=== PATIENT | female | born 1950 | race Caucasian/White ===

== ENCOUNTER → 2016-09-18 | Outpatient (CLI) | payer BC, OTHER | LOC: MC.RAD 07:39 | DX: Z12.31 Encounter for screening mammogram for malignant neoplasm of breast (principal); N63 Unspecified lump in breast; N60.02 Solitary cyst of left breast ==

== ENCOUNTER → 2017-09-17 | Outpatient (CLI) | payer BC, MEDICARE, OTHER | LOC: MC.RAD 08:00 | DX: Z12.31 Encounter for screening mammogram for malignant neoplasm of breast (principal) ==

== ENCOUNTER → 2018-09-20 | Outpatient (CLI) | payer BC, MEDICARE, OTHER | LOC: MC.RAD 13:55 | DX: Z12.31 Encounter for screening mammogram for malignant neoplasm of breast (principal); N63.42 Unspecified lump in left breast, subareolar; R92.1 Mammographic calcification found on diagnostic imaging of breast ==

== ENCOUNTER → 2018-09-24 | Outpatient (CLI) | payer BC, MEDICARE, OTHER | LOC: MC.RAD 07:50 | DX: R92.0 Mammographic microcalcification found on diagnostic imaging of breast (principal) ==

== ENCOUNTER → 2018-09-29 | Outpatient (CLI) | payer BC, MEDICARE, OTHER | LOC: MC.RAD 08:22 | DX: R92.1 Mammographic calcification found on diagnostic imaging of breast (principal); Z98.82 Breast implant status ==

== ENCOUNTER → 2019-10-18 | Outpatient (CLI) | payer BC, MEDICARE, OTHER | LOC: MC.RAD 18:22 | DX: Z12.31 Encounter for screening mammogram for malignant neoplasm of breast (principal) ==

== ENCOUNTER → 2019-12-07 | Outpatient (CLI) | payer MEDICARE, OTHER | LOC: COL.RAD 08:00 | DX: Z01.812 Encounter for preprocedural laboratory examination (principal); K76.9 Liver disease, unspecified; R61 Generalized hyperhidrosis; Z90.5 Acquired absence of kidney | CPT/HCPCS: Q9967 ==

== ENCOUNTER → 2020-10-19 | Outpatient (CLI) | payer MEDICARE, OTHER | LOC: MC.RAD 08:30 | DX: Z12.31 Encounter for screening mammogram for malignant neoplasm of breast (principal); Z98.82 Breast implant status ==

== ENCOUNTER 2021-10-09 16:58 | Observation (INO) | payer MEDICARE, OTHER ==
[~2021-10-09] VITALS: Ht 170.2 cm; Wt 69.8 kg
[2021-10-09] VITALS (182 sets, daily range): BP systolic 140–173; BP diastolic 72–77; PULSE 52–58; TEMP 98.5; O2SAT 95–100
[2021-10-09 17:43] LABS: BASO % 0.3 % (0.0-2.0); EOS # 0.1 K/mm3 (0.0-0.7); EOS % 1.9 % (0.0-4.0); GRAN # 4.3 K/mm3 (1.4-6.5); GRAN % 63.1 % (42.2-75.2); HEMATOCRIT 43.5 % (37.0-47.0); HEMOGLOBIN 14.3 g/dl (12.5-16.0); LYMPH # 1.7 K/mm3 (1.2-3.4); LYMPH % 25.5 % (20.0-51.0); MEAN CELL VOLUME 84 fl (80.0-100.0); MEAN CORPUSCULAR HEMOGLOBIN 28 pg (27-31); MEAN CORPUSCULAR HGB CONC 33 g/dl (33.0-37.0); MEAN PLATELET VOLUME 12.7 fl (7.4-10.4); MONO # 0.6 K/mm3 (0.1-0.6); MONO % 8.9 % (1.7-9.3); PLATELET COUNT 241 K/mm3 (130-400); RED BLOOD COUNT 5.19 M/mm3 (4.10-5.30); REDCELL DISTRIBUTION WIDTH-CV 16.5 % (11.5-14.5)
[2021-10-09 17:46] LABS: PROTHROMBIN TIME 11.5 SECONDS (9.7-12.8)
[2021-10-09 17:48] LABS: PARTIAL THROMBOPLASTIN TIME 31.5 SECONDS (26.0-37.0)
[2021-10-09 17:53] LABS: ALANINE AMINOTRANSFERASE 10 U/L (0-55); ALBUMIN 3.9 gm/dL (3.4-4.8); ALKALINE PHOSPHATASE 48 U/L (40-150); ANION GAP 8 mmol/L (7-16); AST,SGOT 15 U/L (5-34); BILIRUBIN,TOTAL 0.6 mg/dL (0.2-1.2); BLOOD UREA NITROGEN 17 mg/dL (10-20); CARBON DIOXIDE 25 mmol/L (23-31); CHLORIDE 107 mmol/L (98-107); GLUCOSE 95 mg/dL (70-99); POTASSIUM 4.4 mmol/L (3.5-4.5); SODIUM 140 mmol/L (136-145); TOTAL PROTEIN 7.3 gm/dL (6.2-8.1)
[2021-10-09 18:05] LABS: TROPONIN-I < 0.010 ng/mL (0.00-0.033)
[2021-10-09] MEDS ORDERED: LEXAPRO 10MG10 MG PO (18:21)
[2021-10-09] MEDS ORDERED: ZYRTEC 10MG10 MG PO (18:22)
[2021-10-09] MEDS ORDERED: VITAMIN D31000 I1 PO (19:36)
[2021-10-09] MEDS ORDERED: COLACE 100100 MG/CAP PO (19:36)
--- NOTE | 2021-10-09 21:15 | NUR ---
PT ARRIVED FROM ER VIA STRETCHER APPROXIMATELY 2044. WALKED FROM STRETCHER INTO ICU ROOM. CONNECTED TO MONITOR, VS TAKEN. PT HTN WITH SBP>170, HYDRALAZINE GIVEN PER PRN ORDER. PT'S STAYED AT BEDSIDE UNTIL THIS TIME, TOOK HOME PT'S JEWELRY. CELL PHONE LEFT AT BEDSIDE. DISCUSSED POC WITH BOTH PT AND SPOUSE. ON INSULATOR APPRENTICE, HR 58-60, IRREGULAR WITH PVC'S. HOWEVER, PALPATED RADIAL PULSES 38. ALL EXTREMETIES WITH GOOD PERFUSION, WARM AND PINK. PT DENIES ANY PAIN, DIZZINESS, OR SOA. REPORTS HEAD JUST FEELING "A LITTLE OFF" AT TIMES. DISCUSSED CONTINUED MONITORING, LAB DRAWS, AND NPO AFTER MIDNIGHT UNTIL CARDIOLOGY ASSESSES PT IN AM. CURRENTLY EATING TURKEY SANDWICH BOX. NO CURRENT QUESTIONS OR COMPLAINTS. WILL CONTINUE TO MONITOR.
[2021-10-10] VITALS (825 sets, daily range): BP systolic 108–174; BP diastolic 54–111; PULSE 47–92; TEMP 97.7–98.7; O2SAT 95–100
[2021-10-10 06:12] LABS: BASO % 0.4 % (0.0-2.0); EOS # 0.2 K/mm3 (0.0-0.7); EOS % 2.8 % (0.0-4.0); GRAN # 3.1 K/mm3 (1.4-6.5); GRAN % 57.5 % (42.2-75.2); HEMATOCRIT 43.9 % (37.0-47.0); HEMOGLOBIN 14.2 g/dl (12.5-16.0); LYMPH # 1.6 K/mm3 (1.2-3.4); LYMPH % 30.3 % (20.0-51.0); MEAN CELL VOLUME 87 fl (80.0-100.0); MEAN CORPUSCULAR HEMOGLOBIN 28 pg (27-31); MEAN CORPUSCULAR HGB CONC 32 g/dl (33.0-37.0); MEAN PLATELET VOLUME 12.6 fl (7.4-10.4); MONO # 0.5 K/mm3 (0.1-0.6); MONO % 8.8 % (1.7-9.3); PLATELET COUNT 202 K/mm3 (130-400); RED BLOOD COUNT 5.05 M/mm3 (4.10-5.30); REDCELL DISTRIBUTION WIDTH-CV 16.7 % (11.5-14.5)
[2021-10-10 06:31] LABS: CALCIUM 8.8 mg/dL (8.4-10.2); CREATININE, serum 0.8 mg/dL (0.57-1.11); POTASSIUM 4.2 mmol/L (3.5-4.5)
--- NOTE | 2021-10-10 09:00 | NUR ---
Alert and oriented; patient watching TV with at bedside. Denies any shortness of breath, dizziness or chest pain. Call light left within reach.
--- NOTE | 2021-10-10 11:00 | NUR ---
Chief Meteorologist met with patient and patient's , Castro (ph#[phone]) to discuss discharge planning. Patient lives in [place] with her and sees Dr. Sultana for primary care. Patient obtains medications from [facility] with no difficulties and does not use any DME. Patient is independent with ADLS and plans to return home at time of discharge. Patient states she thinks she has Advance Directives but is not sure. Discharge Plan: Home
--- NOTE | 2021-10-10 12:06 | NUR ---
Patient transported off unit for a stress test. Alert and oriented and in no distress upon transfer. VS stable.
--- NOTE | 2021-10-10 13:38 | NUR ---
Returned from stress test. Reporting some nausea with episode of emesis noted at bedside. PRN zofran administered. VS stable will continue to monitor.
[2021-10-11] VITALS: BP 118/60; PULSE 55; TEMP 98.5
[2021-10-11 04:00] VITALS: BP 106/42; PULSE 52; TEMP 97.5
[2021-10-11 06:37] LABS: CALCIUM 9.1 mg/dL (8.4-10.2); CREATININE, serum 0.94 mg/dL (0.57-1.11); MAGNESIUM 2.1 mg/dL (1.6-2.6); POTASSIUM 4.4 mmol/L (3.5-4.5)
[2021-10-11 08:00] VITALS: BP 105/47; PULSE 69; TEMP 99.3
[2021-10-11] MEDS ORDERED: ASPIRIN E.C. 8181 MG PO (08:58)
[2021-10-11] MEDS ORDERED: TOPROL XL 25MG25 MG PO (08:58)
--- NOTE | 2021-10-11 09:24 | NUR ---
Initial visit; Lulu doing better today and is going to be discharged with a heart monitor. Accelerator Systems Director will hopefully get to see her at religion and wished her a healthy, happy weekend and God's blessings.
== END 2021-10-11 10:35 | disposition home or self-care (01) ==
LOC: COL.ER 16:58 → ICU 19:08
PROVIDERS: Emergency Medicine; Nurse Practitioner Family; ADMIT Internal Medicine
DX: R00.1 Bradycardia, unspecified (principal); R07.89 Other chest pain; R03.0 Elevated blood-pressure reading, without diagnosis of hypertension; F32.A Depression, unspecified; Z79.899 Other long term (current) drug therapy; Z77.22 Contact with and (suspected) exposure to environmental tobacco smoke (acute) (chronic)
CPT/HCPCS: A9500; G0378; J0360; J1650; J2405; J2785

== ENCOUNTER → 2021-11-15 | Outpatient (CLI) | payer MEDICARE ==
[~2021-11-15] MED LIST: ASPIRIN E.C. 8181 MG PO; COLACE 100100 MG/CAP PO; LEXAPRO 10MG10 MG PO; TOPROL XL 25MG25 MG PO; VITAMIN D31000 I1 PO; ZYRTEC 10MG10 MG PO
== END ==
LOC: MC.RAD 10-22 10:15
DX: Z12.31 Encounter for screening mammogram for malignant neoplasm of breast (principal)

== ENCOUNTER 2023-12-17 16:51 | Emergency (ER) | payer MEDICARE, OTHER ==
[~2023-12-17] VITALS: Ht 170.2 cm; Wt 72.7 kg
[~2023-12-17 16:51] MED LIST changes: +CARDIZEM LA120 MG PO; +LIALDA 1.2 GM1.2 GM PO; +PACERONE200 MG PO; +ROWASA ENEMA60 ML RC; +TAMBOCOR50 MG PO
[2023-12-17 16:55] VITALS: BP 145/81; TEMP 98.8
[2023-12-17] MEDS ORDERED: CEPHALEXIN500 M1 PO (18:00)
[2023-12-17 18:28] VITALS: PULSE 53
== END 2023-12-17 18:29 | disposition home or self-care (01) ==
LOC: COL.ER 16:51
DX: S91.114A Laceration without foreign body of right lesser toe(s) without damage to nail, initial encounter (principal); I48.91 Unspecified atrial fibrillation; Z23 Encounter for immunization; W20.8XXA Other cause of strike by thrown, projected or falling object, initial encounter

== ENCOUNTER 2024-02-05 13:22 | Emergency (ER) | payer MEDICARE, OTHER ==
[~2024-02-05] VITALS: Ht 170.2 cm; Wt 73.2 kg
[~2024-02-05 13:22] MED LIST changes: +CEPHALEXIN500 M1 PO
[2024-02-05 14:18] LABS: BASO % 0.3 % (0.0-2.0); EOS # 0.3 K/mm3 (0.0-0.7); EOS % 4.9 % (0.0-4.0); GRAN # 4.3 K/mm3 (1.4-6.5); GRAN % 72.5 % (42.2-75.2); LYMPH # 0.8 K/mm3 (1.2-3.4); LYMPH % 13.9 % (20.0-51.0); MEAN CELL VOLUME 95 fl (80.0-100.0); MEAN CORPUSCULAR HGB CONC 30 g/dl (33.0-37.0); MONO # 0.5 K/mm3 (0.1-0.6); MONO % 8.1 % (1.7-9.3); PLATELET COUNT 221 K/mm3 (130-400); RED BLOOD COUNT 3.43 M/mm3 (4.10-5.30); REDCELL DISTRIBUTION WIDTH-CV 15.5 % (11.5-14.5)
[2024-02-05 14:20] LABS: HEMATOCRIT 32.7 % (37.0-47.0); HEMOGLOBIN 9.8 g/dl (12.5-16.0); MEAN CORPUSCULAR HEMOGLOBIN 29 pg (27-31)
[2024-02-05 14:36] LABS: ALBUMIN 3.6 g/dL (3.4-4.8); BILIRUBIN,TOTAL 0.6 mg/dL (0.2-1.2); CALCIUM 9.9 mg/dL (8.4-10.2); CREATININE, serum 1.01 mg/dL (0.57-1.11); POTASSIUM 3.7 mEq/L (3.5-4.5); TOTAL PROTEIN 7.4 g/dl (6.2-8.1)
[2024-02-05 14:44] LABS: TROPONIN-I 0.112 ng/mL (0.00-0.033)
[2024-02-05 14:53] LABS: URINE APPEARANCE CLEAR (CLEAR/HAZY); URINE BLOOD NEGATIVE (NEGATIVE); URINE COLOR YELLOW (YELLOW); URINE GLUCOSE NEGATIVE (NEGATIVE); URINE KETONE NEGATIVE (NEGATIVE); URINE NITRATE NEGATIVE (NEGATIVE); URINE PROTEIN(semi-quant) NEGATIVE (NEGATIVE); URINE UROBILINOGEN 0.2 E.U/dL (0.2-1.0)
[2024-02-05 15:25] LABS: THYROID STIMULATING HORMONE 1.973 uIU/mL (0.350-4.940)
[2024-02-05 16:13] VITALS: BP 126/71; PULSE 84; TEMP 98.2
[2024-02-05 19:45] LABS: COLLECTION METHOD CLEAN CATCH
[2024-02-06] MEDS ORDERED: LOPRESSOR 225 MG/TAB PO (14:54)
== END 2024-02-05 16:21 | disposition home or self-care (01) ==
LOC: COL.ER 13:22
PROVIDERS: Family Medicine
DX: D32.9 Benign neoplasm of meninges, unspecified (principal)

== ENCOUNTER 2024-02-06 10:04 | Emergency (ER) | payer MEDICARE, OTHER ==
[~2024-02-06] VITALS: Ht 170.2 cm; Wt 73.2 kg
[2024-02-06 10:13] VITALS: TEMP 98.7
[2024-02-06] MEDS ORDERED: Adenosine 6 MG/2 ML VIAL IV ONE ×2 (10:26→10:27)
[2024-02-06] MEDS ORDERED: NS 1,000 ML IV ONE (10:30)
[2024-02-06] MEDS ORDERED: fentaNYL 50 MCG/ML 2 ML VIAL IV ONE (10:36)
[2024-02-06 11:27] LABS: BASO % 0.3 % (0.0-2.0); EOS # 0.2 K/mm3 (0.0-0.7); EOS % 3.8 % (0.0-4.0); GRAN # 4.6 K/mm3 (1.4-6.5); GRAN % 75.7 % (42.2-75.2); HEMATOCRIT 27.9 % (37.0-47.0); HEMOGLOBIN 8.7 g/dl (12.5-16.0); LYMPH # 0.7 K/mm3 (1.2-3.4); LYMPH % 11.5 % (20.0-51.0); MEAN CELL VOLUME 93 fl (80.0-100.0); MEAN CORPUSCULAR HEMOGLOBIN 29 pg (27-31); MEAN CORPUSCULAR HGB CONC 31 g/dl (33.0-37.0); MEAN PLATELET VOLUME 11.7 fl (7.4-10.4); MONO # 0.5 K/mm3 (0.1-0.6); MONO % 8.4 % (1.7-9.3); PLATELET COUNT 192 K/mm3 (130-400); RED BLOOD COUNT 2.99 M/mm3 (4.10-5.30); REDCELL DISTRIBUTION WIDTH-CV 15.2 % (11.5-14.5)
[2024-02-06 11:41] LABS: ALBUMIN 2.9 g/dL (3.4-4.8); BILIRUBIN,TOTAL 0.5 mg/dL (0.2-1.2); CALCIUM 8.7 mg/dL (8.4-10.2); CREATININE, serum 0.91 mg/dL (0.57-1.11); TOTAL PROTEIN 6.2 g/dl (6.2-8.1)
[2024-02-06 11:50] LABS: TROPONIN-I 0.096 ng/mL (0.00-0.033)
[2024-02-06 12:14] LABS: COLLECTION METHOD CLEAN CATCH
[2024-02-06 12:17] LABS: PH 5.5 (5.0-8.5); URINE APPEARANCE CLEAR (CLEAR/HAZY); URINE BLOOD NEGATIVE (NEGATIVE); URINE COLOR YELLOW (YELLOW); URINE GLUCOSE NEGATIVE (NEGATIVE); URINE KETONE NEGATIVE (NEGATIVE); URINE NITRATE NEGATIVE (NEGATIVE); URINE PROTEIN(semi-quant) NEGATIVE (NEGATIVE); URINE UROBILINOGEN 0.2 E.U/dL (0.2-1.0)
[2024-02-06 12:24] LABS: THYROID STIMULATING HORMONE 1.977 uIU/mL (0.350-4.940)
[2024-02-06] MEDS ORDERED: Metoprolol Tartrate 25 MG TAB PO ONE (13:30)
[2024-02-06] MEDS ORDERED: LOPRESSOR 225 MG/TAB PO (14:54)
[2024-02-06 15:05] VITALS: BP 128/63; PULSE 78
== END 2024-02-06 15:05 | disposition home or self-care (01) ==
LOC: COL.ER 10:04
PROVIDERS: Family Medicine
DX: I47.10 Supraventricular tachycardia, unspecified (principal)
CPT/HCPCS: J0153; J3010; J7030

== ENCOUNTER 2024-03-23 14:05 | Outpatient (RCR) | payer MEDICARE, OTHER ==
[~2024-03-23 14:05] MED LIST changes: +ASPIRIN 81M81 MG/TA2 PO; +CRESTOR40 MG PO; +ELIQUIS 5MG PO; +K-TAB10 PO; +LASIX 40MG TABL40 MG PO; +LEXAPRO20 MG PO; +LOPRESSOR 225 MG/TAB PO; +MAG-OX 400400 MG/TAB PO; +NEURONTIN100 MG/CAP PO; +PROAMATINE 5MG T5 MG PO; +PROTONIX 40MG T40 MG PO; +SENOKOT S 50 MG1 TAB PO; +TYLENOL 325MG325 MG PO; +ULTRAM 50MG TAB50 MG PO
== END 2024-03-24 | disposition home or self-care (01) ==
LOC: COL.CR
DX: Z02.89 Encounter for other administrative examinations (principal)